=== PATIENT | male | born 1995 | race African-American/Black ===

== ENCOUNTER 2016-09-10 17:07 | Emergency (ER) | payer SELFPAY ==
--- NOTE | 2016-09-10 18:25 | EDM.PDOC ---
ED HPI RENAL/ - General Chief Complaint: Genitourinary Problem Stated Complaint: Rash to genitalia Time Seen by Provider: 09/10/16 18:10 Source of Information: Reports: Patient History Limitations: Reports: No limitations - History of Present Illness INITIAL COMMENTS - FREE TEXT/NARRATIVE: Patient is a 21-year-old male who presents to the ED with his sons who are being evaluated for upper respiratory infections complaining of a rash to his genitalia area. Patient states he developed this rash to the shaft of his penis approximately 2 weeks ago. States the rash has spread since onset. There is no discomfort, discharge, or pain. He denies any pain with urination. States he is in a monogamous relationship with his child's mother to which he does not use protection with sexual intercourse. States both him and his girlfriend have had multiple partners in the past. States his girlfriend has no history STD's. Patient also denies any history of STD's. Timing/Duration: Reports: Constant Location: Reports: other (see HPI) ED ROS GENERAL - Review of Systems Review Of Systems: See Below Constitutional: Reports: no symptoms GI/Abdominal: Reports: No symptoms : Reports: no symptoms Skin: Reports: rash ED EXAM, RENAL/ - Physical Exam Exam: See Below Exam Limited By: No limitations General Appearance: alert, WD/WN, no apparent distress Ears: hearing grossly normal Nose: normal inspection Throat/Mouth: Normal voice, No airway compromise Neck: normal inspection, supple Respiratory/Chest: no respiratory distress, no accessory muscle use Cardiovascular: normal peripheral pulses, regular rate, rhythm (Male) Exam: Circumcised, Penile lesions, Other (Multiple lesions to the shaft of the penis concerning for genital warts. A few lesions appear to be umbilicated concerning for molloscum contagiosum. No open lesions. No drainage noted from the urethra meatus. No tenderness noted with palpation. ). No: Inguinal lymphadenopathy, Scrotum tenderness (L), Scrotum tenderness (R), Testicular tenderness (L), Testicular tenderness (R), Urethral discharge Neurological: alert, oriented, CN II-XII intact, normal cognition Psychiatric: normal affect, normal mood Skin Exam: Warm, Dry, Intact, Normal color Course - Vital Signs Last Recorded V/S: Last Vital Signs Temp 97.4 F 09/10/16 18:03 Pulse 85 09/10/16 18:03 Resp 16 09/10/16 18:03 BP Pulse Ox 99 09/10/16 18:03 - Re-Assessments/Exams Free Text/Narrative Re-Assessment/Exam: Findings are concerning for genital warts or molluscum contagiosum. Patient requested STD testing. Patient has no insurance and thus will go to [facility] for free testing. Discharge instructions as documented. 09/10/16 23:07 Departure - Departure Time of Disposition: 18:10 Disposition: Home, Self-Care 01 Condition: good Clinical Impression: Genital warts, Molluscum contagiosum, Rash of genitalia Instructions: Genital Warts, Molluscum Contagiosum, Adult Referrals: Bebeto Kennedy PA-C [Physician Business Initiatives Manager] - Aakash Ashford [Physician] - Forms: ED Department Discharge Additional Instructions: ED HPI RENAL/ - General Chief Complaint: Genitourinary Problem Stated Complaint: Rash to genitalia Time Seen by Provider: 09/10/16 18:10 Source of Information: Reports: Patient Course - Vital Signs Last Recorded V/S: Last Vital Signs Temp 97.4 F 09/10/16 18:03 Pulse 85 09/10/16 18:03 Resp 16 09/10/16 18:03 BP Pulse Ox 99 09/10/16 18:03 Departure - Departure Time of Disposition: 18:10 Disposition: Home, Self-Care 01 Condition: good Clinical Impression: Genital warts, Molluscum contagiosum, Rash of genitalia Referrals: Bebeto Kennedy PA-C [Physician Business Initiatives Manager] - Aakash Ashford [Physician] - Forms: ED Department Discharge Rash to genitalia could be genital warts or molluscum contagiosum. Treatment for both is cyrotherapy or topical cream. Please go to [facility] for STD testing. See Hung Kennedy at [facility] for further treatment. No sexual intercourse until STD testing is completed.
== END 2016-09-10 19:09 | disposition home or self-care (01) ==
LOC: JD.ED 17:07
CPT/HCPCS: 99282; 99283

== ENCOUNTER 2017-05-12 23:47 | Emergency (ER) | payer SELFPAY ==
[2017-05-12 23:59] VITALS: BP 157/92
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
[2017-05-13] MEDS ORDERED: Lidocaine 1% 10 ML MDV INJECT ONE (00:22)
[2017-05-13] MEDS ORDERED: Acetaminophen 325 MG Tab PO ONE (01:30)
== END 2017-05-13 01:38 | disposition home or self-care (01) ==
LOC: JD.ED 23:47
DX: S01.511A Laceration without foreign body of lip, initial encounter (principal); F17.210 Nicotine dependence, cigarettes, uncomplicated; W23.1XXA Caught, crushed, jammed, or pinched between stationary objects, initial encounter
CPT/HCPCS: 12013; 99283; A9270; 99282-25

== ENCOUNTER 2018-11-26 15:29 | Emergency (ER) | payer SELFPAY ==
[2018-11-26 15:38] VITALS: BP 146/106
--- NOTE | 2018-11-26 16:35 | EDM.PDOC ---
ED HPI GENERAL MEDICAL PROBLEM - General Chief Complaint: Respiratory Problem Stated Complaint: SORE THROAT Time Seen by Provider: 11/26/18 16:00 Source of Information: Reports: Patient History Limitations: Reports: No Limitations - History of Present Illness INITIAL COMMENTS - FREE TEXT/NARRATIVE: 23-year-old male presents for evaluation treatment of a sore throat and cough. Patient reports that started last night. reports that he had a fever, he did not check his temperature but reports feeling chilled and diaphoretic. He states that he has some throat pain, is coughing and wheezing. He is also reporting ear pain and one episode of posttussive emesis. He has not taken any [id number] medications for this thus far. No diarrhea, nausea or abdominal pain. Patient is healthy with no known medical conditions. Throat Pain Score (Numeric/FACES): 9 - Related Data Allergies Allergy/AdvReac Type Severity Reaction Status Date / Time No Known Allergies Allergy Verified 11/26/18 15:43 Home Meds: Home Meds Albuterol [Ventolin HFA] 1 puff INH Q4H #1 inhaler 11/26/18 [Rx] Past Medical History HEENT History: Reports: Other (See Below) Other HEENT History: r lower tooth pain Respiratory History: Reports: Bronchitis, Recurrent Gastrointestinal History: Reports: Other (See Below) Other Gastrointestinal History: hernia umbilical - Past Surgical History Head Surgeries/Procedures: Reports: Other (See Below) GI Surgical History: Reports: Hernia, Abdominal Social & Family History - Family History Family Medical History: Noncontributory - Tobacco Use Smoking Status *Q: Current Every Day Smoker Years of Tobacco use: 5 Packs/Tins Daily: 0.5 - Caffeine Use Caffeine Use: Reports: Coffee - Recreational Drug Use Recreational Drug Use: No ED ROS GENERAL - Review of Systems Review Of Systems: See Below Constitutional: Reports: Fever, Chills, Diaphoresis HEENT: Reports: Ear Pain, Throat Pain Respiratory: Reports: Shortness of Breath, Wheezing, Cough. Denies: Sputum GI/Abdominal: Denies: Abdominal Pain, Diarrhea, Nausea, Vomiting (reports post tussive emesis) Neurological: Reports: Headache ED EXAM, GENERAL - Physical Exam Exam: See Below Exam Limited By: No Limitations General Appearance: Alert, WD/WN, No Apparent Distress Ears: Normal External Exam, Normal Canal, Other (right TM obscured by cerumen) Ear Exam: Right Ear: Canal Normal (left was tender with manipulation), Left Ear : TM normal, Bilateral Ear: Auricle Normal Nose: Normal Inspection Throat/Mouth: Normal Inspection, Normal Lips, Normal Oropharynx, Normal Voice, No Airway Compromise Neck: Normal Inspection Respiratory/Chest: No Respiratory Distress, Lungs Clear, Normal Breath Sounds Cardiovascular: Normal Peripheral Pulses, Regular Rate, Rhythm, No Murmur GI/Abdominal: Normal Bowel Sounds, Soft, Non-Tender Neurological: Alert, Oriented, Normal Cognition Psychiatric: Normal Affect, Normal Mood Skin Exam: Warm, Dry, Normal Color Course - Vital Signs Last Recorded V/S: Last Vital Signs Temp 98.2 F 11/26/18 15:36 Pulse 99 11/26/18 15:36 Resp 16 11/26/18 15:36 BP 146/106 H 11/26/18 15:36 Pulse Ox 99 11/26/18 15:36 - Orders/Labs/Meds Orders: Active Orders 24 hr Category Date Time Status CULTURE STREP A CONFIRMATION [] Stat Lab 11/26/18 16:20 Results STREP SCRN A RAPID W CULT CONF [] Stat Lab 11/26/18 16:20 Results - Radiology Interpretation Free Text/Narrative:: chest xray shows no acute intrathoracic process. Formal radiology read pending. - Re-Assessments/Exams Free Text/Narrative Re-Assessment/Exam: 11/26/18 17:07 influenza and rapid strep are negative. Reviewed labs and imaging with the patient. Likely viral URI. Recommend symptomatic care. Will give albuterol for wheezing and shortness of breath. Discharge instructions as documented. Departure - Departure Time of Disposition: 17:10 Disposition: Home, Self-Care 01 Condition: Fair Clinical Impression: Viral upper respiratory infection - Discharge Information *PRESCRIPTION DRUG MONITORING PROGRAM REVIEWED*: No *COPY OF PRESCRIPTION DRUG MONITORING REPORT IN PATIENT UMER: No Prescriptions: Albuterol [Ventolin HFA] 1 puff INH Q4H #1 inhaler Instructions: Upper Respiratory Infection, Adult, [id number] Referrals: PCP,None [Primary Care Provider] - Forms: ED Department Discharge Additional Instructions: May take OTC tylenol or motrin as needed for headaches, fevers and bodyaches. Expect your illness to last about 7-10 days, if your symptoms persist beyond 14 days, follow-up with family med. may use albuterol 1-2 puffs every 4-6 hours as needed for shortness of breath. Rest. Drink plenty of fluids. Please return to the ER should your symptoms change or worsen. - My Orders Last 24 Hours: My Active Orders 11/26/18 16:20 CULTURE STREP A CONFIRMATION [RM] Stat STREP SCRN A RAPID W CULT CONF [RM] Stat - Assessment/Plan Last 24 Hours: My Active Orders 11/26/18 16:20 CULTURE STREP A CONFIRMATION [RM] Stat STREP SCRN A RAPID W CULT CONF [RM] Stat
--- NOTE | 2018-11-27 07:12 | CR ---
Chest: Two views of the chest were obtained. Comparison: No previous study. Heart size and mediastinum are within normal limits. Lungs are clear with no acute parenchymal change. Minimal upper thoracic scoliosis is noted. Impression: 1. Nothing acute is appreciated on two-view chest x-ray. Diagnostic code #2
== END 2018-11-26 17:29 | disposition home or self-care (01) ==
LOC: JD.ED 15:29
DX: J06.9 Acute upper respiratory infection, unspecified (principal); F17.210 Nicotine dependence, cigarettes, uncomplicated
CPT/HCPCS: 71046; 71046-26; 87081; 87430; 87804; 99283; 99283-25

== ENCOUNTER 2018-12-05 09:57 | Emergency (ER) | payer SELFPAY ==
[2018-12-05 10:11] VITALS: BP 117/96
[2018-12-05] MEDS ORDERED: Lidocaine 1% 10 ML MDV INJECT ONE (10:23)
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
--- NOTE | 2018-12-05 11:30 | CR ---
Left humerus: Two views of the left humerus were obtained. Comparison: No previous study. No soft tissue foreign body is seen. No fracture or other bony abnormality is identified. Impression: 1. Unremarkable two-view left humerus exam. Diagnostic code #1
== END 2018-12-05 11:22 | disposition home or self-care (01) ==
LOC: JD.ED 09:57
DX: S01.01XA Laceration without foreign body of scalp, initial encounter (principal); S41.112A Laceration without foreign body of left upper arm, initial encounter; F17.210 Nicotine dependence, cigarettes, uncomplicated; X58.XXXA Exposure to other specified factors, initial encounter
CPT/HCPCS: 73060-26-LT; 73060-LT; 99283-25

== ENCOUNTER 2019-07-06 12:05 | Emergency (ER) | payer SELFPAY ==
[2019-07-06 12:15] VITALS: BP 137/86; PULSE 106
--- NOTE | 2019-07-06 12:23 | EDM.PDOC ---
ED HPI GENERAL MEDICAL PROBLEM - General Chief Complaint: Respiratory Problem Stated Complaint: COUGH/BODY ACHES Time Seen by Provider: 07/06/19 12:15 Source of Information: Reports: Patient, Family History Limitations: Reports: No Limitations - History of Present Illness INITIAL COMMENTS - FREE TEXT/NARRATIVE: Since unfortunate 24-year-old black male who presents emergency Department today with complaint of sore throat cough congestion runny nose and posttussive vomiting. Patient reports that symptoms started 2 days ago and progressively worsened since. Patient reports she has painful swallowing Kuldip's able to swallow fluids well. However he does have posttussive vomiting anytime he coughs he vomits afterwards. No fever positive chills positive body aches no shortness of breath Chest Pain Score (Numeric/FACES): 10 - Related Data Allergies Allergy/AdvReac Type Severity Reaction Status Date / Time No Known Allergies Allergy Verified 07/06/19 12:44 Home Meds: Home Meds Albuterol [Ventolin HFA] 1 puff INH Q4H #1 inhaler 11/26/18 [Rx] Promethazine/Dextromethorphan [Promethazine-Dm Solution] 5 ml PO Q4H PRN #120 ml 07/06/19 [Rx] Past Medical History HEENT History: Reports: Other (See Below) Other HEENT History: r lower tooth pain Cardiovascular History: Reports: None Respiratory History: Reports: Bronchitis, Recurrent Gastrointestinal History: Reports: Other (See Below) Other Gastrointestinal History: hernia umbilical Genitourinary History: Reports: None Musculoskeletal History: Reports: None Neurological History: Reports: None Psychiatric History: Reports: None Endocrine/Metabolic History: Reports: Obesity/BMI 30+ Hematologic History: Reports: None Immunologic History: Reports: None Oncologic (Cancer) History: Reports: None Dermatologic History: Reports: None - Infectious Disease History Infectious Disease History: Reports: None - Past Surgical History GI Surgical History: Reports: Hernia, Abdominal Social & Family History - Family History Family Medical History: Noncontributory - Tobacco Use Smoking Status *Q: Current Every Day Smoker Years of Tobacco use: 7 Packs/Tins Daily: 1.5 - Caffeine Use Caffeine Use: Reports: Soda - Recreational Drug Use Recreational Drug Type: Reports: Marijuana/Hashish ED ROS GENERAL - Review of Systems Review Of Systems: See Below Constitutional: Reports: Chills, Fatigue, Other (Body aches). Denies: Fever HEENT: Reports: Rhinitis Respiratory: Reports: Cough. Denies: Shortness of Breath, Wheezing ED EXAM, GENERAL - Physical Exam Exam: See Below Exam Limited By: No Limitations General Appearance: Alert, WD/WN, Mild Distress Ears: Normal External Exam, Normal Canal, Hearing Grossly Normal, Normal TMs Nose: Normal Inspection, Normal Mucosa, No Blood Throat/Mouth: Other (Tonsils 2+ erythematous posterior pharyngeal erythema postnasal drip) Neck: Normal Inspection, Supple, Non-Tender, Full Range of Motion, Other ( Bilateral anterior cervical chain lymphadenopathy) Respiratory/Chest: No Respiratory Distress, Lungs Clear, Normal Breath Sounds, No Accessory Muscle Use, Chest Non-Tender Cardiovascular: Normal Peripheral Pulses, Regular Rate, Rhythm, No Edema, No Gallop, No JVD, No Murmur, No Rub GI/Abdominal: Normal Bowel Sounds, Soft, Non-Tender, No Organomegaly, No Distention, No Abnormal Bruit, No Mass Extremities: Normal Inspection, Normal Range of Motion, Non-Tender, Normal Capillary Refill, No Pedal Edema Neurological: Alert Skin Exam: Warm, Dry, No Rash Course - Vital Signs Last Recorded V/S: Last Vital Signs Temp 99.7 F 07/06/19 12:13 Pulse 106 H 07/06/19 12:13 Resp 18 07/06/19 12:13 BP 137/86 07/06/19 12:13 Pulse Ox 99 07/06/19 12:13 - Orders/Labs/Meds Orders: Active Orders 24 hr Category Date Time Status Chest 2V [CR] Stat Exams 07/06/19 12:23 Taken CULTURE STREP A CONFIRMATION [RM] Stat Lab 07/06/19 12:25 Results STREP SCRN A RAPID W CULT CONF [RM] Stat Lab 07/06/19 12:25 Results - Re-Assessments/Exams Free Text/Narrative Re-Assessment/Exam: 07/06/19 13:26 Chest x-ray interpreted by me ROB Departure - Departure Time of Disposition: 13:26 Disposition: Home, Self-Care 01 Condition: Good Clinical Impression: Influenza - Discharge Information Prescriptions: Promethazine/Dextromethorphan [Promethazine-Dm Solution] 5 ml PO Q4H PRN #120 ml PRN Reason: Cough Referrals: PCP,None [Primary Care Provider] - Forms: ED Department Discharge, ED Return to Work/School Form Additional Instructions: Home, rest, Tylenol or Motrin for fever or pain, return as needed for worsening condition Sepsis Event Note - Evaluation Sepsis Screening Result: Possible Sepsis Risk - Focused Exam Vital Signs: Vital Signs Temp Pulse Resp BP Pulse Ox 07/06/19 12:13 99.7 F 106 H 18 137/86 99 Date Exam was Performed: 07/06/19 Time Exam was Performed: 13:26 - My Orders Last 24 Hours: My Active Orders 07/06/19 12:23 Chest 2V [CR] Stat 07/06/19 12:25 CULTURE STREP A CONFIRMATION [RM] Stat STREP SCRN A RAPID W CULT CONF [RM] Stat - Assessment/Plan Last 24 Hours: My Active Orders 07/06/19 12:23 Chest 2V [CR] Stat 07/06/19 12:25 CULTURE STREP A CONFIRMATION [RM] Stat STREP SCRN A RAPID W CULT CONF [RM] Stat
--- NOTE | 2019-07-06 13:37 | CR ---
Chest: Two views of the chest were obtained. Comparison: Prior chest x-ray of 11/26/18. Heart size and mediastinum are normal. Lungs are clear. Bony structures are unremarkable. Impression: 1. Nothing acute is seen on two-view chest x-ray. Diagnostic code #1 This report was dictated in Mountain Standard Time
== END 2019-07-06 13:39 | disposition home or self-care (01) ==
LOC: JD.ED 12:05
DX: J11.1 Influenza due to unidentified influenza virus with other respiratory manifestations (principal); E66.9 Obesity, unspecified; F17.210 Nicotine dependence, cigarettes, uncomplicated; Z68.34 Body mass index [BMI] 34.0-34.9, adult
CPT/HCPCS: 71046; 71046-26; 87081; 87430; 87804; 99282; 99284-25

== ENCOUNTER 2020-03-15 02:19 | Emergency (ER) | payer SELFPAY ==
[2020-03-15 02:36] VITALS: BP 140/97; PULSE 93
[2020-03-15] MEDS ORDERED: Bupivacaine 0.5% 10 ML SDV INJECT ONE (02:53)
[2020-03-15] MEDS ORDERED: Lidocaine 1% with EPINEPHrine 1:100,000 20 ML MDV INJECT ONE (02:56)
--- NOTE | 2020-03-15 03:04 | EDM.PDOC ---
ED HPI GENERAL MEDICAL PROBLEM - General Chief Complaint: ENT Problem Stated Complaint: tooth pain Time Seen by Provider: 03/15/20 02:29 Source of Information: Reports: Patient History Limitations: Reports: No Limitations - History of Present Illness INITIAL COMMENTS - FREE TEXT/NARRATIVE: Mr. Burnett is a pleasant 24-year-old gentleman with no chronic medical problems, who now presents the ED stating that he developed upper right dental pain this past 03/13/2020. He denies having any injury to the tooth. He states that he can feel a hole on the lingual aspect with his tongue, and that he gets some pain relief if he squirts hydrogen peroxide on or in the hole. No recent fever, and no oral drainage. No prior problems with this tooth. The patient states that he took 4 tablets of Advil and 1 tablet of Dilaudid, given to him by a friend, around 23:00, but that he still cannot sleep. Interestingly, however, the patient nearly fell asleep on me while I was obt aining his history. The patient states that he has not seen a dentist for about 10 years, but he states that he is prepared to contact one in the morning. Here in the ED, the patient's initial BP is found to be mildly elevated at 140/97, otherwise, he is hemodynamically stable, afebrile, saturating 99% on room air. Other than his dental pain, the patient denies having a recent fever, chills, so re throat, ear pain, nasal or sinus congestion, cough, dyspnea, chest pain, palpitations, nausea, vomiting, constipation, diarrhea, abdominal pain, urinary symptoms, recent weight gain or weight loss, recent bloody bowel movements or black bowel movements, recent joint aches, headaches, or rashes. The patient does not have a PCP. Right Upper Tooth/Teeth Pain Score (Numeric/FACES): 10 - Related Data Allergies Allergy/AdvReac Type Severity Reaction Status Date / Time No Known Allergies Allergy Verified 03/15/20 02:35 Home Meds: Home Meds Albuterol [Ventolin HFA] 1 puff INH Q4H #1 inhaler 11/26/18 [Rx] Past Medical History Endocrine/Metabolic History: Reports: Obesity/BMI 30+ - Past Surgical History GI Surgical History: Reports: Hernia, Abdominal (umbilical) Social & Family History - Family History Family Medical History: Noncontributory - Tobacco Use Smoking Status *Q: Current Every Day Smoker Years of Tobacco use: 6 Packs/Tins Daily: 0.5 - Caffeine Use Caffeine Use: Reports: Coffee - Alcohol Use Alcohol Use History: No - Recreational Drug Use Recreational Drug Use: Yes Drug Use in Last 12 Months: Yes Recreational Drug Type: Reports: Marijuana/Hashish (smokes daily) - Living Situation & Occupation Living situation: Reports: Single, with Family Occupation: Unemployed ED ROS ENT - Review of Systems Review Of Systems: Comprehensive ROS is negative, except as noted in HPI. ED EXAM, ENT - Physical Exam Exam: See Below Exam Limited By: No Limitations General Appearance: WD/WN, No Apparent Distress Eye Exam: Bilateral Eye: EOMI, Normal Inspection Ears: Normal External Exam, Normal Canal, Hearing Grossly Normal, Normal TMs Nose: Normal Inspection, Normal Mucousa, No Blood Mouth/Throat: Normal Gums, Normal Lips, Normal Oropharynx, Other (Tooth #1 absent. Tooth #3 (the tooth of concern) without visible abnormality. No associated gingival swelling or pointing. Teeth numbers 5, 6 adjacent to each other tangential to the gingiva. Tooth #16 absent. Tooth #32 minimally erupted.) Head: Atraumatic, Normocephalic Neck: Normal Inspection, Supple, Non-Tender, Full Range of Motion. No: Lymphadenopathy (L), Lymphadenopathy (R) Course - Vital Signs Last Recorded V/S: Last Vital Signs Temp 36.3 C 03/15/20 02:31 Pulse 93 03/15/20 02:31 Resp 18 03/15/20 02:31 BP 140/97 H 03/15/20 02:31 Pulse Ox 99 03/15/20 02:31 - Orders/Labs/Meds Meds: Medications Discontinued Medications Generic Name Dose Route Start Last Admin Trade Name Oneilq PRN Reason Stop Dose Admin Bupivacaine HCl 10 ml 03/15/20 02:53 03/15/20 03:15 Sensorcaine-Mpf 0.5% INJECT 03/15/20 02:54 10 ml ONETIME ONE Administration Lidocaine/Epinephrine 20 ml 03/15/20 02:56 03/15/20 03:15 Xylocaine 1% With Epinephrine 1:100,000 INJECT 03/15/20 02:57 20 ml ONETIME ONE Administration - Re-Assessments/Exams Free Text/Narrative Re-Assessment/Exam: 03/15/20 02:59 As above, the patient is complaining of pain to tooth #3. I do not see any abnormality to the tooth, but he states that he can feel a hole with his tongue, and he states that his pain improves if he squirts hydrogen peroxide on it, therefore I suspect that he has a princess. He states that he does not care about the pain, but that he just wants some sort of pain relief. He states that he took 4 tablets of Advil and a Dilaudid tablet given to him by a friend, around 23:00 tonight. Here in the ED, while the patient states that he is in a lot of pain, he nearly fell asleep on me while I was obtaining a history. Obviously, given his use of illicit opioids, I am not keen to prescribe opioids to him. The patient requested a dental block, which I can provide. 03/15/20 03:17 I performed a dental block to tooth #3, injecting about 2 cc of a 50-50 admixture of lidocaine 1% with epinephrine and bupivacaine 0.5% without epinephrine. The patient tolerated the procedure well and reported significant improvement in his pain almost immediately. He states that he already knows which dentist to call in the morning, therefore he declined an offer for a list of local dentists. I will discharge him home. Departure - Departure Time of Disposition: 03:18 Disposition: Home, Self-Care 01 Condition: Good Clinical Impression: Dentalgia - Discharge Information *PRESCRIPTION DRUG MONITORING PROGRAM REVIEWED*: Not Applicable *COPY OF PRESCRIPTION DRUG MONITORING REPORT IN PATIENT UMER: Not Applicable Instructions: Acute Pain, Adult Referrals: PCP,None [Primary Care Provider] - Forms: ED Department Discharge Additional Instructions: You were seen in the emergency room for an upper right toothache. Although no visible abnormality was seen, based on your history and physical examination, you likely have a cavity in your upper right first molar (tooth #3). A dental block of tooth #3 was performed in the ER, with immediate relief. As discussed, it is very important that you follow-up with a dentist as soon as possible. If any other problems, please do not hesitate to return to the ER. Sepsis Event Note (ED) - Evaluation Sepsis Screening Result: No Definite Risk - Focused Exam Vital Signs: Vital Signs Temp Pulse Resp BP Pulse Ox 03/15/20 02:31 36.3 C 93 18 140/97 H 99
== END 2020-03-15 03:31 | disposition home or self-care (01) ==
LOC: JD.ED 02:19
DX: K08.89 Other specified disorders of teeth and supporting structures (principal); F17.210 Nicotine dependence, cigarettes, uncomplicated; E66.9 Obesity, unspecified; Z68.32 Body mass index [BMI] 32.0-32.9, adult
CPT/HCPCS: 64400; 99282; J3490

== ENCOUNTER 2020-12-18 12:10 | Emergency (ER) | payer SELFPAY ==
--- NOTE | 2020-12-18 12:27 | EDM.PDOC ---
ED HPI GENERAL MEDICAL PROBLEM - General Chief Complaint: Skin Complaint Stated Complaint: SKIN COMPLAINT/CHEST Time Seen by Provider: 12/18/20 12:27 Source of Information: Reports: Patient History Limitations: Reports: No Limitations - History of Present Illness INITIAL COMMENTS - FREE TEXT/NARRATIVE: 25-year-old male of -[place] ancestry presents to the ED with redness and swelling of his left upper and mid chest over the suprasternal notch and inferior neck more to the left than the right. Patient states he started with a scratch on his left upper neck just above his collarbone on the left side 4 days ago. This area is now oozing of pus with surrounding cellulitis left upper anterior chest. Onset: Gradual Onset Date: 12/17/20 (As noted pain yesterday morning and then as the day they went on the area became reddened. Much worse this morning) Duration: Hour(s):, Getting Worse Location: Reports: Chest (Upper chest over the suprasternal notch and lower left neck) Quality: Reports: Ache, Burning Severity: Moderate Improves with: Reports: None Worsens with: Reports: Other (Worse with touching the area.) Context: Reports: Other (Patient reports original injury was a scratch which he obtained about 3 days ago.). Denies: Activity, Exercise, Lifting, Sick Contact, Trauma Associated Symptoms: Reports: Other (No signs of systemic symptoms of illness.). Denies: Chest Pain, Cough, cough w sputum, Diaphoresis, Fever/Chills, Headaches, Loss of Appetite, Malaise, Nausea/Vomiting Treatments DOSIER OPERATOR: Reports: Other (see below) Other Treatments DOSIER OPERATOR: none-just happened Upper Chest Pain Score (Numeric/FACES): 9 - Related Data Allergies Allergy/AdvReac Type Severity Reaction Status Date / Time No Known Allergies Allergy Verified 03/15/20 02:35 Home Meds: Home Meds Albuterol [Ventolin HFA] 1 puff INH Q4H #1 inhaler 11/26/18 [Rx] Doxycycline [Vibra-Tabs] 100 mg PO Q12HR #18 tab 12/18/20 [Rx] Past Medical History HEENT History: Reports: Other (See Below) Other HEENT History: r lower tooth pain Cardiovascular History: Reports: None Respiratory History: Reports: Asthma, Bronchitis, Recurrent Gastrointestinal History: Reports: Other (See Below) Other Gastrointestinal History: hernia umbilical Genitourinary History: Reports: None Musculoskeletal History: Reports: None Neurological History: Reports: None Psychiatric History: Reports: None Endocrine/Metabolic History: Reports: Obesity/BMI 30+ Hematologic History: Reports: None Immunologic History: Reports: None Oncologic (Cancer) History: Reports: None Dermatologic History: Reports: None - Infectious Disease History Infectious Disease History: Reports: None - Past Surgical History Head Surgeries/Procedures: Reports: Other (See Below) GI Surgical History: Reports: Hernia, Abdominal Social & Family History - Family History Family Medical History: No Pertinent Family History - Caffeine Use Caffeine Use: Reports: Coffee - Living Situation & Occupation Living situation: Reports: Single, with Family Occupation: Unemployed ED ROS GENERAL - Review of Systems Review Of Systems: See Below Constitutional: Denies: Fever, Chills, Malaise, Weakness, Fatigue HEENT: Reports: No Symptoms Respiratory: Reports: No Symptoms Cardiovascular: Reports: No Symptoms Endocrine: Reports: No Symptoms GI/Abdominal: Reports: No Symptoms : Reports: No Symptoms Musculoskeletal: Reports: No Symptoms Skin: Reports: No Symptoms Neurological: Reports: No Symptoms Psychiatric: Reports: No Symptoms Hematologic/Lymphatic: Reports: No Symptoms Immunologic: Reports: No Symptoms ED EXAM, SKIN/RASH Exam: See Below Exam Limited By: No Limitations General Appearance: Alert, WD/WN, No Apparent Distress, Other (Patient does not talk very much. Does not make eye contact. Spends most of his time looking at his phone. Temperature is 36.9 degrees. Heart rate 98 sinus. Respiratory is 20 with O2 sats of 97% on room air. BP is 130/90.) Eye Exam: Bilateral Eye: Normal Inspection (No scleral icterus or blepharal pallor.) Head: Atraumatic, Normocephalic Neck: Other (Mild erythema and tenderness of the anterior aspect of the midline and left lower neck just above initial wound which was a scratch which he is opened up and is revealing some purulent drainage. The initial wound he says was a scratch and is approximately a centimeter in length and 3 mm in width ju) Respiratory/Chest: No Respiratory Distress, Lungs Clear, Normal Breath Sounds, No Accessory Muscle Use Cardiovascular: Normal Peripheral Pulses, Regular Rate, Rhythm, No Edema, No Gallop, No Murmur, No Rub Peripheral Pulses: 3+: Carotid (L), Carotid (R), Radial (L), Radial (R) Extremities: Normal Inspection, Normal Range of Motion, Non-Tender, No Pedal Edema, Other (Has a drug patch left upper arm.) Neurological: Alert, Oriented, CN II-XII Intact, Normal Cognition Skin: Warm, Dry, Other (Area of cellulitis left upper anterior and mid chest. It in total areas about the size of your palm. It is erythematous warm to touch and is mostly in the midline over the suprasternal notch and to the left of midline. It involves the lower one third of the anterior neck as well.) Location, Skin: Neck, Other (Left anterior neck is shows redness combined with cellulitis developing.) Characteristics: Macular Associated features: Warmth, Tenderness, Swelling Course - Vital Signs Last Recorded V/S: Last Vital Signs Temp 36.9 C 12/18/20 12:28 Pulse 98 12/18/20 12:28 Resp 20 12/18/20 12:28 BP 130/90 12/18/20 12:28 Pulse Ox 97 12/18/20 12:28 - Orders/Labs/Meds Orders: Active Orders 24 hr Category Date Time Status CULTURE ANAEROBIC + SMEAR [RM] Stat Lab 12/18/20 12:45 Received [email or web address] [Rocephin] 2 gm Med 12/18/20 12:34 Active Sodium Chloride 0.9% [Normal Saline] 100 ml IV ONETIME Medication Orders Ceftriaxone Sodium 2 gm/ (Sodium Chloride) 100 mls @ 200 mls/hr IV ONETIME ONE Stop: 12/18/20 13:03 Last Admin: 12/18/20 12:48 Dose: Not Given Documented by: [facility] Meds: Medications Generic Name Dose Route Start Last Admin Trade Name Freq PRN Reason Stop Dose Admin Ceftriaxone Sodium 2 gm/ 100 mls @ 200 mls/hr 12/18/20 12:34 12/18/20 12:48 Sodium Chloride IV 12/18/20 13:03 Not Given ONETIME ONE Discontinued Medications Generic Name Dose Route Start Last Admin Trade Name Freq PRN Reason Stop Dose Admin Doxycycline Hyclate 200 mg 12/18/20 12:35 12/18/20 12:48 Doxycycline 100 Mg Cap PO 12/18/20 12:36 200 mg ONETIME ONE Administration - Radiology Interpretation Free Text/Narrative:: 25-year-old male presents to the ED with an area of cellulitis of his upper anterior chest over the suprasternal notch area down to the first rib and lower one third of the anterior neck in the midline and to the left of the midline. Original wound appears to be a purulent area just above the medial left collarbone which he states started out as a scratch. It is approximately a centimeter in length and 2 to 3 mm in width and is purulent. The area is very warm to touch compatible with developing cellulitis. The plan will be to proceed with intravenous Rocephin 2 g IV and oral doxycycline 200 mg. - Re-Assessments/Exams Free Text/Narrative Re-Assessment/Exam: 12/18/20 12:46 once the patient seen the IV needle or catheter he stated that he did not want medication intravenously. He also did not want an intramuscular injection of Rocephin. The plan will be therefore to proceed with oral doxycycline starting with 200 mg in the ED and then taking 100 mg twice daily for the next 9 days. Patient forewarned that there is a chance that the redness and swelling will increase dramatically over the next 24 hours. Departure - Departure Time of Disposition: 12:51 Disposition: Home, Self-Care 01 Condition: Fair Clinical Impression: Cellulitis of chest wall, Cellulitis of neck Cellulitis Qualifiers: Site of cellulitis: trunk Site of cellulitis of trunk: chest wall Qualified Code(s): L03.313 - Cellulitis of chest wall - Discharge Information *PRESCRIPTION DRUG MONITORING PROGRAM REVIEWED*: Not Applicable *COPY OF PRESCRIPTION DRUG MONITORING REPORT IN PATIENT UMER: Not Applicable Prescriptions: Doxycycline [Vibra-Tabs] 100 mg PO Q12HR #18 tab Instructions: Cellulitis, Adult Referrals: PCP,None [Primary Care Provider] - Forms: ED Department Discharge Additional Instructions: Evaluation in the emergency room today in regards to developing infection on your skin which we call cellulitis upper anterior chest and lower portion of your left neck. Original wound appears to be a scratch that is opened up along the collarbone on the left side towards the midline. It is approximately a centimeter in length and 2 to 3 mm in width and is revealing some pus. My advice was to receive the initial dose of antibiotic intravenously due to the ability of this infection to spread fairly rapidly. You decided not to proceed with this treatment plan and did not want an intramuscular injection of Rocephin either. You therefore received doxycycline 200 mg by mouth for the initial dose and then you will have to take 100 mg twice daily for the next 9 days. The next tablet would be due tonight at bedtime. The drugstore that is open today is the [facility] pharmacy across the [facility] from [facility]. It is open from 12 to 4 PM today. Sepsis Event Note (ED) - Focused Exam Vital Signs: Vital Signs Temp Pulse Resp BP Pulse Ox 12/18/20 12:28 36.9 C 98 20 130/90 97 - My Orders Last 24 Hours: My Active Orders 12/18/20 12:34 cefTRIAXone [Rocephin] 2 gm Sodium Chloride 0.9% [Normal Saline] 100 ml IV ONETIME 12/18/20 12:45 CULTURE ANAEROBIC + SMEAR [RM] Stat - Assessment/Plan Last 24 Hours: My Active Orders 12/18/20 12:34 cefTRIAXone [Rocephin] 2 gm Sodium Chloride 0.9% [Normal Saline] 100 ml IV ONETIME 12/18/20 12:45 CULTURE ANAEROBIC + SMEAR [RM] Stat
[2020-12-18 12:31] VITALS: BP 130/90; PULSE 98
[2020-12-18] MEDS ORDERED: cefTRIAXone 2 GM in Sodium Chloride 0.9% 100 ML IV ONE (12:34)
[2020-12-18] MEDS ORDERED: Doxycycline 100 MG Cap PO ONE (12:35)
== END 2020-12-18 12:55 | disposition home or self-care (01) ==
LOC: JD.ED 12:10
DX: L03.313 Cellulitis of chest wall (principal); L03.221 Cellulitis of neck; J45.909 Unspecified asthma, uncomplicated; E66.9 Obesity, unspecified; Z68.29 Body mass index [BMI] 29.0-29.9, adult
CPT/HCPCS: 87075; 87205; 99283; A9270; 87076; 87077; 87181; 87184; 99284